=== PATIENT | male | born 1955 | race Caucasian/White ===

== ENCOUNTER 2019-03-26 16:19 | Emergency (ER) | payer MEDICARE, OTHER ==
[2019-03-26 16:55] VITALS: O2SAT 96
[2019-03-26] MEDS ORDERED: SULFA/TRIMETH 800/160 (DS) TAB 1 EA TAB PO ONE (18:14)
[2019-03-26] MEDS ORDERED: AMOXICILLIN & POT CLAVULANATE 875 MG TAB PO ONE (18:14)
[2019-03-26] MEDS ORDERED: cefTRIAXone SODIUM 1 GM VIAL IM ONE (18:14)
[2019-03-26] MEDS ORDERED: MORPHINE SULFATE INJ 10 MG/ML VIAL IM ONE (18:17)
--- NOTE | 2019-03-26 18:19 | ED.PDOC ---
History of Present Illness - General Chief Complaint: General Stated Complaint: wound infection,dehiscence Time Seen by Provider: 03/26/19 16:45 Source: patient Exam Limitations: no limitations - History of Present Illness Initial Comments: the patient is a 63-year-old male presenting to the emergency room secondary to dehiscence of his left femoral bypass site. He apparently had the surgery done on the fourth of this month. He has had swelling and some drainage ever since but about 5 days ago the site started to open up the area is approximately 3-1/2 inches in length and three quarters of an inch wide at its widest. It is about a half inch deep at its deepest. He does appear to be neurovascularly intact distally. Dorsalis pedis and posterior tibialis pulses are 1+ each. Perfusion appears to be adequate. No fevers. Again he reports continuous drainage since his surgery. There is mild surrounding erythema. He does still smoke. Timing/Duration: other - 5 days Severity: moderate Improving Factors: nothing Worsening Factors: nothing Associated Symptoms: denies symptoms Allergies/Adverse Reactions: Allergies Clarithromycin [From Biaxin] Allergy (Verified 03/26/19 17:00) Home Medications: Ambulatory Orders Albuterol Inhaler [Ventolin Hfa Inhaler] 108 mcg IN PRN 03/26/19 Amlodipine Besylate [Norvasc] 10 mg PO DAILY 03/26/19 Amoxicillin & Pot Clavulanate [Augmentin Tab] 875 mg PO BID #20 tab 03/26/19 Aspirin [Aspirin Adult Low Dose] 81 mg PO DAILY 03/26/19 Atorvastatin Calcium [Lipitor] 20 mg PO BEDTIME 03/26/19 Clopidogrel Bisulfate [Plavix] 75 mg PO QD 03/26/19 Finasteride 5 mg PO DAILY 03/26/19 Furosemide [Lasix] 20 mg PO DAILY 03/26/19 Gabapentin 900 mg PO TID 03/26/19 Insulin Glargine [Lantus Solostar] 75 unit SC DAILY 03/26/19 Insulin Lispro [HumaLOG] 300 unit SUBCU .SLIDING SCALE 03/26/19 Metformin HCl [Glucophage] 1,000 mg PO BID 03/26/19 Nitroglycerin 0.4 mg SL PRN 03/26/19 Sulfa/Trimeth 800/160 (Ds) Tab [Bactrim DS Tab] 1 ea PO BID #20 tab 03/26/19 Tamsulosin HCl [Flomax] 0.4 mg PO DAILY 03/26/19 Umeclidinium [place] [Incruse Ellipta] 62.5 mcg IN DAILY 03/26/19 Review of Systems - Review of Systems Constitutional: States: no symptoms reported EENTM: States: no symptoms reported Respiratory: States: no symptoms reported Cardiology: States: no symptoms reported Gastrointestinal/Abdominal: States: no symptoms reported Genitourinary: States: no symptoms reported Musculoskeletal: States: no symptoms reported Skin: States: see HPI Neurological: States: no symptoms reported Endocrine: States: no symptoms reported All other Systems: No Change from Baseline Past Medical History (General) - Patient Medical History Hx Stroke: No Hx Congestive Heart Failure: No Hx Hypertension: Yes Hx Diabetes: Yes - Vaccination History Hx Influenza Vaccination: Yes - 2018 Hx Pneumococcal Vaccination: Yes - Social History Hx Tobacco Use: Yes Family Medical History - Family History Father Family History: Unknown Living Status: Unknown Physical Exam - Physical Exam General Appearance: Alert, Comfortable, No apparent distress Eye Exam: bilateral normal Ears, Nose, Throat: hearing grossly normal, normal pharynx Neck: non-tender, supple Respiratory: no respiratory distress, no accessory muscle use Cardiovascular/Chest: other - regular rate. Trace edema bilaterally. Peripheral Pulses: radial,right: 2+, radial,left: 2+, dorsalis pedis,left: 1+, posterior tibialis,left: 1+ Gastrointestinal/Abdominal: non tender, soft Rectal Exam: deferred Extremity: normal range of motion, no calf tenderness, normal capillary refill, pedal edema - trace Neurologic: career information specialist II-XII nml as tested, alert, normal mood/affect, oriented x 3 Skin Exam: other - see history of present illness. Comments: Vital Signs - 24 hr 03/26/19 16:51 Temperature 98.4 F Pulse Rate [ 98 H Left Brachial] Respiratory 20 Rate Blood Pressure 123/66 [Left Arm] O2 Sat by Pulse 96 Oximetry Progress - Progress Progress: 03/26/19 18:21 the patient's a 63-year-old male presenting to the emergency room secondary to dehiscence of his left femoral artery bypass site. His surgeon, Lamont Ybarra has been contacted. Antibiotics have been recommended. The patient will be placed on Bactrim and Augmentin. The patient is to contact his office tomorrow to set up an appointment for follow-up. He is to keep the wound dry. ER warnings were given. Stop smoking. - Results/Orders Results/Orders: Laboratory Tests 03/26/19 03/26/19 03/26/19 17:00 17:00 17:00 WBC 14.6 H RBC 3.78 L Hgb 12.1 L Hct 35.2 L MCV 93.1 MCH 32.0 H MCHC 34.4 RDW 15.8 H Plt Count 1001 H MPV 6.5 L Absolute Neuts (auto) 10.10 H Absolute Lymphs (auto) 2.80 Absolute Monos (auto) 1.20 H Absolute Eos (auto) 0.40 Absolute Basos (auto) 0.20 H Neutrophils % 69.2 Lymphocytes % 18.9 L Monocytes % 8.3 Eosinophils % 2.5 Basophils % 1.1 PT 10.0 INR 1.00 PTT (SP) 29.8 Sodium 140 Potassium 3.9 Chloride 105 Carbon Dioxide 22 Anion Gap 16.9 BUN 15 Creatinine 0.84 BUN/Creatinine Ratio 17.9 Random Glucose 101 Serum Osmolality 280.4 Calcium 8.6 Total Bilirubin 0.6 AST 14 ALT 20 Alkaline Phosphatase 147 H Serum Total Protein 7.9 Albumin 3.9 Globulin 4.0 H Albumin/Globulin Ratio 1.0 L blood culture and wound culture were done. Departure - Departure Clinical Impression: Wound dehiscence, internal operation Qualifiers: Encounter type: initial encounter Qualified Code(s): T81.32XA - Disruption of internal operation (surgical) wound, not elsewhere classified, initial encounter Disposition: Discharge to Home or Self Care Condition: Fair Departure Forms: ED Discharge - Pt. Copy, Patient Portal Self Enrollment Diet: diabetic diet Activity: increase activity as tolerated Prescriptions: Amoxicillin & Pot Clavulanate [Augmentin Tab] 875 mg PO BID #20 tab Sulfa/Trimeth 800/160 (Ds) Tab [Bactrim DS Tab] 1 ea PO BID #20 tab Home Medications: Ambulatory Orders Albuterol Inhaler [Ventolin Hfa Inhaler] 108 mcg IN PRN 03/26/19 Amlodipine Besylate [Norvasc] 10 mg PO DAILY 03/26/19 Amoxicillin & Pot Clavulanate [Augmentin Tab] 875 mg PO BID #20 tab 03/26/19 Aspirin [Aspirin Adult Low Dose] 81 mg PO DAILY 03/26/19 Atorvastatin Calcium [Lipitor] 20 mg PO BEDTIME 03/26/19 Clopidogrel Bisulfate [Plavix] 75 mg PO QD 03/26/19 Finasteride 5 mg PO DAILY 03/26/19 Furosemide [Lasix] 20 mg PO DAILY 03/26/19 Gabapentin 900 mg PO TID 03/26/19 Insulin Glargine [Lantus Solostar] 75 unit SC DAILY 03/26/19 Insulin Lispro [HumaLOG] 300 unit SUBCU .SLIDING SCALE 03/26/19 Metformin HCl [Glucophage] 1,000 mg PO BID 03/26/19 Nitroglycerin 0.4 mg SL PRN 03/26/19 Sulfa/Trimeth 800/160 (Ds) Tab [Bactrim DS Tab] 1 ea PO BID #20 tab 03/26/19 Tamsulosin HCl [Flomax] 0.4 mg PO DAILY 03/26/19 Umeclidinium [place] [Incruse Ellipta] 62.5 mcg IN DAILY 03/26/19 Additional Instructions: the patient's a 63-year-old male presenting to the emergency room secondary to dehiscence of his left femoral artery bypass site. His surgeon, Lamont Ybarra has been contacted. Antibiotics have been recommended. The patient will be placed on Bactrim and Augmentin. The patient is to contact his office tomorrow to set up an appointment for follow-up. He is to keep the wound dry. ER warnings were given. Stop smoking.
[2019-03-26] MEDS ORDERED: LIDOCAINE 1% 2 ML VIAL INJ ONE (18:24)
[2019-03-26 19:55] VITALS: BP 135/90; TEMP 97.8
== END 2019-03-26 19:55 | disposition home or self-care (01) ==
LOC: ER 16:19
DX: T81.32XA Disruption of internal operation (surgical) wound, not elsewhere classified, initial encounter (principal); F17.200 Nicotine dependence, unspecified, uncomplicated; I10 Essential (primary) hypertension; E11.9 Type 2 diabetes mellitus without complications; Z79.4 Long term (current) use of insulin; Z79.899 Other long term (current) drug therapy; Z79.82 Long term (current) use of aspirin; Z88.1 Allergy status to other antibiotic agents
CPT/HCPCS: 80053; 85025; 85610; 85730; 87040; 87070; J0696; J2270

== ENCOUNTER 2019-03-30 10:32 | Emergency (ER) | payer MEDICARE, OTHER ==
[2019-03-30 10:45] VITALS: TEMP 97.6; O2SAT 97
--- NOTE | 2019-03-30 10:56 | ED.PDOC ---
History of Present Illness - General Chief Complaint: Skin/Abrasion/Tear Stated Complaint: Infected wound Time Seen by Provider: 03/30/19 10:54 - History of Present Illness Initial Comments: Pt recently had fem-fem bypass in the R leg , has opened wound which is getting worse , no fever or chills , swelling getting better , slight redness Severity: moderate Improving Factors: nothing Worsening Factors: nothing Associated Symptoms: denies symptoms Allergies/Adverse Reactions: Allergies Clarithromycin [From Biaxin] Allergy (Verified 03/26/19 17:00) Home Medications: Ambulatory Orders Albuterol Inhaler [Ventolin Hfa Inhaler] 108 mcg IN PRN 03/26/19 Amlodipine Besylate [Norvasc] 10 mg PO DAILY 03/26/19 Amoxicillin & Pot Clavulanate [Augmentin Tab] 875 mg PO BID #20 tab 03/26/19 Aspirin [Aspirin Adult Low Dose] 81 mg PO DAILY 03/26/19 Atorvastatin Calcium [Lipitor] 20 mg PO BEDTIME 03/26/19 Clopidogrel Bisulfate [Plavix] 75 mg PO QD 03/26/19 Finasteride 5 mg PO DAILY 03/26/19 Furosemide [Lasix] 20 mg PO DAILY 03/26/19 Gabapentin 900 mg PO TID 03/26/19 Insulin Glargine [Lantus Solostar] 75 unit SC DAILY 03/26/19 Insulin Lispro [HumaLOG] 300 unit SUBCU .SLIDING SCALE 03/26/19 Metformin HCl [Glucophage] 1,000 mg PO BID 03/26/19 Nitroglycerin 0.4 mg SL PRN 03/26/19 Sulfa/Trimeth 800/160 (Ds) Tab [Bactrim DS Tab] 1 ea PO BID #20 tab 03/26/19 Tamsulosin HCl [Flomax] 0.4 mg PO DAILY 03/26/19 Umeclidinium [place] [Incruse Ellipta] 62.5 mcg IN DAILY 03/26/19 levoFLOXacin [Levaquin] 500 mg PO DAILY #10 tab 03/30/19 Review of Systems - Review of Systems Constitutional: States: no symptoms reported EENTM: States: no symptoms reported Respiratory: States: no symptoms reported Cardiology: States: no symptoms reported Gastrointestinal/Abdominal: States: no symptoms reported Genitourinary: States: no symptoms reported Musculoskeletal: States: no symptoms reported Skin: States: see HPI Neurological: States: no symptoms reported Endocrine: States: no symptoms reported Hematologic/Lymphatic: States: no symptoms reported All other Systems: Reviewed and Negative Past Medical History (General) - Patient Medical History Hx Stroke: No Hx Asthma: Yes Hx of COPD: Yes Hx Congestive Heart Failure: No Hx Hypertension: Yes Hx Diabetes: Yes Surgical History: appendectomy, other - Vaccination History Hx Influenza Vaccination: Yes - 2018 Hx Pneumococcal Vaccination: Yes - Social History Hx Tobacco Use: Yes Hx Alcohol Use: No - Did drink in the past Family Medical History - Family History Father Family History: Unknown Living Status: Unknown Physical Exam - Physical Exam General Appearance: Alert, Comfortable Eye Exam: bilateral normal Ears, Nose, Throat: hearing grossly normal Neck: full range of motion Respiratory: no respiratory distress, no accessory muscle use Back Exam: normal inspection Extremity: other - open wound on the R upper thigh , some necrotic tissue Neurologic: no motor/sensory deficits, alert, normal mood/affect Departure - Departure Clinical Impression: Disruption of external operation (surgical) wound, Wound dehiscence, surgical Time of Disposition: 10:58 Disposition: Discharge to Home or Self Care Condition: Good Departure Forms: ED Discharge - Pt. Copy, Patient Portal Self Enrollment Diet: resume usual diet Activity: increase activity as tolerated Prescriptions: levoFLOXacin [Levaquin] 500 mg PO DAILY #10 tab Home Medications: Ambulatory Orders Albuterol Inhaler [Ventolin Hfa Inhaler] 108 mcg IN PRN 03/26/19 Amlodipine Besylate [Norvasc] 10 mg PO DAILY 03/26/19 Amoxicillin & Pot Clavulanate [Augmentin Tab] 875 mg PO BID #20 tab 03/26/19 Aspirin [Aspirin Adult Low Dose] 81 mg PO DAILY 03/26/19 Atorvastatin Calcium [Lipitor] 20 mg PO BEDTIME 03/26/19 Clopidogrel Bisulfate [Plavix] 75 mg PO QD 03/26/19 Finasteride 5 mg PO DAILY 03/26/19 Furosemide [Lasix] 20 mg PO DAILY 03/26/19 Gabapentin 900 mg PO TID 03/26/19 Insulin Glargine [Lantus Solostar] 75 unit SC DAILY 03/26/19 Insulin Lispro [HumaLOG] 300 unit SUBCU .SLIDING SCALE 03/26/19 Metformin HCl [Glucophage] 1,000 mg PO BID 03/26/19 Nitroglycerin 0.4 mg SL PRN 03/26/19 Sulfa/Trimeth 800/160 (Ds) Tab [Bactrim DS Tab] 1 ea PO BID #20 tab 03/26/19 Tamsulosin HCl [Flomax] 0.4 mg PO DAILY 03/26/19 Umeclidinium [place] [Incruse Ellipta] 62.5 mcg IN DAILY 03/26/19 levoFLOXacin [Levaquin] 500 mg PO DAILY #10 tab 03/30/19 Additional Instructions: Follow up with surgeon
[2019-03-30 11:40] VITALS: BP 112/77
== END 2019-03-30 11:30 | disposition home or self-care (01) ==
LOC: ER 10:32
DX: T81.31XA Disruption of external operation (surgical) wound, not elsewhere classified, initial encounter (principal)

== ENCOUNTER → 2019-06-16 | Outpatient (CLI) | payer MEDICARE, OTHER | LOC: LAB.O 14:24 | PROVIDERS: ATTEND Registered Nurse General Practice | DX: E11.9 Type 2 diabetes mellitus without complications (principal) ==

== ENCOUNTER → 2020-04-07 | Outpatient (CLI) | payer MEDICARE, OTHER ==
--- NOTE | 2020-04-09 10:13 | CT ---
EXAM DESCRIPTION: CTA Runoff: Computed Tomography. CLINICAL HISTORY: ARTERIOSCLEROSIS OF BILATERAL LEG ARTERIES COMPARISON: Ultrasound of the lower extremity arterial systems on the same visit. TECHNIQUE: CT angiography of the abdominal aorta and both lower extremities is performed during rapid bolus administration of IV contrast media. Three-dimensional volume-rendering imaging 1.2 mm increments is reviewed along with 2.5 x 2.5 mm source images, abdomen to knees, and knees to ankles. 2.0 mm coronal and sagittal reformats. Total Exam DLP: 2143 mGy-cm. This exam was performed according to our departmental CT dose-optimization program which includes automated exposure control, adjustment of the mA and/or kV according to patient size and/or use of iterative reconstruction technique; to reduce radiation dose to as low as reasonably achievable (ALARA). FINDINGS: Upper abdominal aorta: Minimal intimal wall thickening with the origins of the celiac axis and SMA are unremarkable. Mid-abdominal aorta: Single renal artery on the right. Main left renal artery and accessory renal artery on left. Minimal intimal wall thickening in the aorta with the renal arteries showing no significant narrowing. Distal abdominal aorta: Minimal to moderate intimal thickening and atherosclerotic calcification. Origin of the LUZ and proximal vessel with negative findings. Common iliacs: Complete occlusion of the left common iliac artery with moderate atherosclerotic calcification. 40% diameter stenosis of the proximal right artery. 25% diameter stenosis at the bifurcation. Internal iliacs: Minimal atherosclerotic occlusive calcifications on the right. Branches from the LUZ, left pelvic vessels, and lumbar arteries forming collateral flow to the left vessel best seen on axial series 2, images 92 through 95. Right external iliac artery: Minimal calcification proximally with no significant stenosis. Right SIGNAL REPAIRER: Minimal to moderate narrowing with minimal calcification. Right SFA: Minimal narrowing with almost 50% stenosis proximally. Minimal calcification proximal and mid vessel with almost 40% diameter stenosis mid vessel. Right popliteal: Minimal intimal wall narrowing. No calcification. Right trifurcation vessels: Minimal to moderate narrowing of the anterior tibial artery, good visualization and fair runoff into the dorsalis pedis. Almost complete occlusion of the distal posterior tibial peroneal trunk with calcification wall thickening. Fair visualization of the proximal DIRECTOR ORACLE with calcification. Good runoff to the posterior ankle and medial plantar foot. Peroneal terminates normally just above the ankle. Left external iliac artery: Completely occluded - No contrast with moderate atherosclerotic calcification Left SIGNAL REPAIRER: Previous insertion of stent which is completely occluded. Left SFA: Collateral flow into the proximal vessel from the thigh and inferior left pelvic vessels. Also collateral flow into the deep artery. Moderate reduction of the caliber of the vessel and complete occlusion at the level of the mid femoral shaft. This is approximately 2 cm in length, followed by revisualization of the vessel from collaterals.. Left popliteal: Unremarkable. Left trifurcation vessels: Good to failure contrast flow in the anterior tibial artery with poor runoff into the dorsalis pedis artery. Good flow in the peroneal and posterior tibial vessels extending into the ankle level and medial foot. Other: Small bowel dilated with gas proximally and fluid distally but no transitional zones and no significant air-fluid levels. Colon moderately distended with gas and minimal fecal matter. Prostate gland calcifications impressing on the base of the bladder. No ascites. No free air. Fatty inguinal hernia extending into the upper left scrotum with unusual calcifications. IMPRESSION: 1. Complete occlusion of the left common iliac artery, proximal left internal iliac artery, left external iliac artery, and left common femoral artery stent. Collaterals causing recanalization of the proximal left superficial femoral artery which is occluded in the mid thigh but recanalized distally by collaterals. Left distal internal iliac artery recanalized by collaterals from pelvis, lumbar arteries, and LUZ branches. 2. Moderate stenosis of the right common iliac artery. Moderate narrowing of the right superficial femoral artery. No significant narrowing or stenosis of the trifurcation vessels bilaterally. 3. Fatty hernia extending into the upper left scrotum with unusual calcifications. Consider ultrasound evaluation of the scrotum. Electronically signed by: Heber Correa MD 04/09/2020 10:11 AM [facility]
== END ==
LOC: CT 13:07
PROVIDERS: ATTEND Nurse Practitioner Family
DX: Z01.812 Encounter for preprocedural laboratory examination (principal); I70.213 Atherosclerosis of native arteries of extremities with intermittent claudication, bilateral legs; I74.5 Embolism and thrombosis of iliac artery; K40.90 Unilateral inguinal hernia, without obstruction or gangrene, not specified as recurrent

== ENCOUNTER → 2020-04-08 | Outpatient (CLI) | payer MEDICARE, OTHER ==
--- NOTE | 2020-04-09 10:25 | US ---
EXAM DESCRIPTION: Extremity,Lower James Arteries: Ultrasound. CLINICAL HISTORY: ATHEROSCLEROSIS OF EMMONAK ARTERIES OF EXTREMITIES INTERMIT. MAVIS COMPARISON: Aortic and bilateral lower extremity runoff CTA on the same visit. TECHNIQUE: Doppler evaluation of the bilateral lower extremity arterial flow waveforms and velocities. FINDINGS: Arterial waveforms in the right lower extremity are all multiphasic.. Arterial waveforms in the left lower extremity: No flow in the left common femoral artery. Monophasic flow proximal and distal superficial femoral artery. No flow in the mid left femoral artery. Monophasic flow in the left popliteal artery, peroneal artery and posterior tibial artery. Monophasic flow to limited flow dorsalis pedis. Comments: Findings in the left lower extremity are similar to findings on the CTA. IMPRESSION: Doppler ultrasound of the bilateral lower extremity arterial system shows significant atherosclerotic occlusive disease in the left lower extremity arterial system. Please refer to CTA of the abdominal aorta and bilateral lower extremities on the same visit. Electronically signed by: Heber Correa MD 04/09/2020 10:24 AM [facility]
== END ==
LOC: US 10:02
PROVIDERS: ATTEND Nurse Practitioner Family
DX: I70.213 Atherosclerosis of native arteries of extremities with intermittent claudication, bilateral legs (principal)